=== PATIENT | female | born 1985 | race Caucasian/White ===

== ENCOUNTER 2022-01-17 09:55 | Emergency (ER) | payer SELFPAY ==
[~2022-01-17] VITALS: Ht 170.2 cm; Wt 49.9 kg
--- NOTE | 2022-01-17 10:05 | NUR ---
The patient is , from home, having panic attack, palpitation, been drinking alcohol x 4 days, HR 140. The patient is alert and oriented x3. Denies pain. In room air and denies SOB. Respiration regular and unlabored. Attached to the monitor. Will continue to monitor the patient.
[2022-01-17] MEDS ORDERED: LORAZEPAM INJ 2 MG/ML VIAL ONE (10:16)
[2022-01-17 10:26] LABS: BASOPHILS # (AUTO) 0.1 K/uL (0.0-0.2); BASOPHILS % (AUTO) 0.9 % (0.0-2.0); EOSINOPHILS % (AUTO) 0.6 % (0.0-6.0); HEMATOCRIT 47 % (33-45); HEMOGLOBIN 15.8 g/dL (11.5-14.8); LYMPHOCYTES # (AUTO) 4.2 K/uL (0.8-4.8); LYMPHOCYTES % (AUTO) 55.7 % (20.0-44.0); MEAN CORPUSCULAR HGB CONC 34 g/dl (31.0-36.0); MEAN CORPUSCULAR VOLUME 93 fL (82-100); MONOCYTES # (AUTO) 0.4 K/uL (0.1-1.30); MONOCYTES % (AUTO) 5.1 % (2.0-12.0); NEUTROPHILS # (AUTO) 2.9 K/uL (1.8-8.9); NEUTROPHILS % (AUTO) 37.7 % (43.0-81.0); PLATELET COUNT (AUTO) 269 K/uL (150-450); RED BLOOD CELL COUNT(AUTO) 5.03 MIL/uL (4.0-5.2); WHITE BLOOD COUNT (AUTO) 7.6 K/uL (4.3-11.0)
--- NOTE | 2022-01-17 10:27 | NUR ---
UNABLE TO PROVIDE URINE SAMPLE YET.
[2022-01-17] MEDS ORDERED: LORAZEPAM INJ 2 MG/ML VIAL IV ONE (10:30)
[2022-01-17] MEDS ORDERED: IV NS 0.9% 1,000 ML BAG IV ONE (10:30)
[2022-01-17 10:45] LABS: ALANINE AMINOTRANSFERASE 34 U/L (12-78); ALBUMIN 4.2 g/dL (3.4-5.0); ALKALINE PHOSPHATASE 70 U/L (46-116); ASPARTATE AMINOTRANSFERASE 55 U/L (15-37); BILIRUBIN,DIRECT 0.3 mg/dL (0.0-0.2); BILIRUBIN,TOTAL 0.9 mg/dL (0.2-1.0); CALCIUM, SERUM 9.1 mg/dL (8.5-10.1); CARBON DIOXIDE 20 mmol/L (21-32); CHLORIDE 97 mmol/L (98-107); CREATININE 0.7 mg/dL (0.6-1.3); GLUCOSE 64 mg/dL (74-106); POTASSIUM 3.8 mmol/L (3.5-5.1); SODIUM SERUM 139 mmol/L (136-145); TOTAL PROTEIN, SERUM 8.5 g/dL (6.4-8.2); UREA NITROGEN, BLOOD 7 mg/dL (7-18)
--- NOTE | 2022-01-17 13:00 | NUR ---
THE PATIENT REFUSES TO GIVE URINE SAMPLE DESPITE EXPLAINING RISKS AND BENEFITS. DR DENY CAPPS.
--- NOTE | 2022-01-17 13:02 | NUR ---
"VIVEK Note: Pt. Is a 36-year-old female who demonstrates adequate insight to the reason for hospitalization. Per pt., she presents in the ER for panic attack/drinking for 4 days straight. Pt. was oriented x4, alert, and cooperative. During interview, pt. was capable of following directions and appeared unkempt. Pt.'s speech was at a normal rate and pt.'s mood was elevated. Pt. reported no hx of mental health, denies suicidal ideation, or homicidal ideation. Pt. denies auditory hallucinations, visual hallucinations, paranoia, or delusions. Pt. stated that she has been drinking for 4 days straight [wine and tequila] due to being stressed. Pt. lives alone [[address] [place] [address]], so it gets lonely. Pt. has been to therapy during the pandemic but became inconsistent with it, so it was not helpful. Pt. expressed that she wants counseling outpatient resources to see a therapist, SW provided pt. with resources. Per pt., it will be helpful to do talk therapy. Plan: SANDRA provided available resources and pt. accepted Upon discharge, per pt., she will return home by calling a Lyft once medically cleared. Resources Provided: Year-round shelters: [facility] [address] [place] [address] ; [facility] [address] [place] [address]; [place] [facility] [id number] [facility] [address] Winter Shelters: Sukh Chan Provider: [place] [facility] [place] Address: [address] [facility] [place], [address] # of Beds: 47 Population Served: [facility] 6 | [facility] Kathryn Murillo [place] Provider: [facility] Address: [address], [address] # of Beds: 66 Population Served: [facility] [employer] [place] Provider: [facility] Serve Address: [address] [facility] # of Beds: 56 Population Served: [facility] [place] Provider: /[facility]. [facility] Address: [address] [facility], [address] # of Beds: 49 Population Served: [facility] 8 | [place] Yeny Chan Provider: [facility] Serve Address: [address] [address] # of Beds: 37 Population Served: [facility] Hy[facility]: [facility]: [address] [place] ; [place] [facility] [address] [facility] ; [facility] [address], [place] . Food Resources: [place] [facility] at [facility]- [address] [facility]; Meet Each Need with Dign[facility] ([facility]) [address] [facility]; [facility] [address] [facility]; [facility] [address] [facility]. Mental Health resources provided: [facility] [address] [place], [place] [address] ; [facility] [place] [address] [facility] [address], [place], [place] [id number] ; [facility] [address] [place] [address] ; [facility] [address] [place], [place] [id number] Healthcare Clinics: [facility] [address] [facility], [address] [place]. [place] ; [facility] [address] [facility] [address] [place] [address]; [facility] [address] [facility] [place] [phone] Counseling--Outpatient [facility] [address] [facility], [place] [address] (Specializes in in-depth psychotherapy for emotional distress: anxiety, depression, interpersonal conflicts, life transitions, childhood abuse) [facility] [address] [place] [address] (Assist with solving problem marital difficulties, separation & divorce, aging parents, & grief, chronic & terminal illness) [facility] [address] [place] [address] (Deal with loss & grief, anxiety, marital difficulties) Homebound/Mental Health Services [address] [facility] [address] [place], [place] [id number] (Provide in-home mental services to people who are incapable of leaving their homes) [facility] Elderly Senior Service/Resource [facility] [address] [place] [address] [facility] [address] [place] [address] PSYCHIATRIC OUTPATIENT SERVICES [facility] Partial Hospitalization and Intensive Outpatient Program (Managed Care and [place] Only)[address] [facility] [phone] [facility] Partial Hospitalization and Outpatient Gefpqzd86043 [facility] [address] [place], [place] [phone] [facility] Jwo[address] [facility] [address] [place], [place] [phone] [facility] Partial Hospitalization and Outpatient Awvleoa[address]89 [place], [phone] Substance Abuse resources provided included: [facility] Substance Abuse Self-Helpline (SAS) ; CRI -[facility]LP [address] [facility] [place]. [place] [address] ; [facility] [address] [facility] [address] ; [facility] Rehabilitation Program [address] [facility] [address] ; [facility] [address] [place] [facility] [phone] ; [facility] [address] [facility] [address] ; [facility] [place] [address] [facility] [phone] ; [facility] Substance Abuse Helpline([facility] ; [facility] ; [facility]; [facility] [place]; [facility] [place]; [facility] [place]; [facility] [place]; [place] [place]; [facility] [place]; [facility]'s [place], [facility]. [place]; Alcoholics Anonymous -[facility]; Lw-Ugwg-Jveoszu ; Marijuana Anonymous -[facility]V; Narcotics Anonymous www.na.org;"
[2022-01-17 13:55] LABS: CALCIUM, SERUM 7.8 mg/dL (8.5-10.1); CREATININE 0.6 mg/dL (0.6-1.3); POTASSIUM 4.3 mmol/L (3.5-5.1)
--- NOTE | 2022-01-17 14:30 | NUR ---
The patient is alert and oriented x4. Denies pain. In room air and denies SOB. Respiration regular and unlabored. The patient has stable gait. IV removed. Catheter intact and site benign. Pressure and 4x4 applied to site. No bleeding noted.Patient discharged to home in stable condition. Written and verbal after care instructions given. Patient verbalizes understanding of instruction.
[2022-01-17 14:31] VITALS: BP 121/67
== END 2022-01-17 14:32 | disposition home or self-care (01) ==
LOC: ER 09:59
DX: F41.0 Panic disorder [episodic paroxysmal anxiety] (principal); F10.10 Alcohol abuse, uncomplicated; Y90.9 Presence of alcohol in blood, level not specified
CPT/HCPCS: 36415; 71045; 80048 ×2; 80076; 80320; 84484 ×2; 85025; 93005; 96361; 96374; 99285; J2060; J7030; G0480

== ENCOUNTER 2022-01-18 23:19 | Emergency (ER) | payer SELFPAY ==
[~2022-01-18] VITALS: Ht 170.2 cm; Wt 62.1 kg
--- NOTE | 2022-01-18 23:36 | NUR ---
BIBSISTER C/O CP AND FAST HEART RATE WANTS TO GET CHECK OUT, LAST TOOK ADDERALL 30MG AND WINE SATURDAY NIGHT. PATIENT ALERT AND ORIENTED X3. AMBULATORY WITH NON LABORED BREATHING IN BED 14 ON MONITOR AWAITING MD BARROW.
[2022-01-18] MEDS ORDERED: ASPIRIN 325 MG TABLET ONE (23:50)
--- NOTE | 2022-01-18 23:59 | NUR ---
RAC #18G S/L; PATENT AND INTACT. BLOOD COLLECTED AND SENT TO LAB
[2022-01-19] MEDS ORDERED: IV NS 0.9% 1,000 ML BAG IV ONE
[2022-01-19] MEDS ORDERED: ASPIRIN 325 MG TABLET PO ONE
--- NOTE | 2022-01-19 00:02 | NUR ---
EMT @ BEDSIDE FOR EKG
[2022-01-19 00:12] LABS: BASOPHILS % (AUTO) 0.5 % (0.0-2.0); EOSINOPHILS % (AUTO) 0.4 % (0.0-6.0); HEMATOCRIT 44 % (33-45); LYMPHOCYTES # (AUTO) 1.7 K/uL (0.8-4.8); LYMPHOCYTES % (AUTO) 25.2 % (20.0-44.0); MEAN CORPUSCULAR HGB CONC 34 g/dl (31.0-36.0); MEAN CORPUSCULAR VOLUME 93 fL (82-100); MONOCYTES # (AUTO) 0.6 K/uL (0.1-1.30); MONOCYTES % (AUTO) 8.8 % (2.0-12.0); NEUTROPHILS # (AUTO) 4.4 K/uL (1.8-8.9); NEUTROPHILS % (AUTO) 65.1 % (43.0-81.0); PLATELET COUNT (AUTO) 226 K/uL (150-450); RED BLOOD CELL COUNT(AUTO) 4.78 MIL/uL (4.0-5.2); WHITE BLOOD COUNT (AUTO) 6.7 K/uL (4.3-11.0)
--- NOTE | 2022-01-19 00:14 | NUR ---
URINE COLLECTED AND SENT TO LAB
--- NOTE | 2022-01-19 00:15 | NUR ---
AIRLINE MECHANIC AT PT'S BEDSIDE
[2022-01-19 00:26] LABS: CREATININE 0.7 mg/dL (0.6-1.3)
[2022-01-19 00:28] LABS: D-DIMER 0.27 mg/L(FEU (0.17-0.50)
[2022-01-19 00:42] LABS: ALBUMIN 4.1 g/dL (3.4-5.0); BILIRUBIN,DIRECT 0.3 mg/dL (0.0-0.2); BILIRUBIN,TOTAL 1.1 mg/dL (0.2-1.0); TOTAL PROTEIN, SERUM 8.3 g/dL (6.4-8.2)
[2022-01-19 02:32] VITALS: BP 126/71
--- NOTE | 2022-01-19 02:32 | NUR ---
Patient discharged to home in stable condition. Written and verbal after care instructions given. Patient verbalizes understanding of instruction.
== END 2022-01-19 02:33 | disposition home or self-care (01) ==
LOC: ER 23:30
DX: F41.0 Panic disorder [episodic paroxysmal anxiety] (principal); F10.10 Alcohol abuse, uncomplicated; R07.89 Other chest pain; Z60.2 Problems related to living alone; Y90.0 Blood alcohol level of less than 20 mg/100 ml
CPT/HCPCS: 36415 ×2; 71045; 80048; 80076; 80307; 80320; 83880; 84484 ×2; 84703; 85025; 85378; 85730; 93005; 96360; 99285; J7030; G0480

== ENCOUNTER 2022-01-19 13:08 | Emergency (ER) | payer SELFPAY ==
--- NOTE | 2022-01-19 13:14 | NUR ---
CALLED TO TRIAGE NO ANSWER.
--- NOTE | 2022-01-19 13:20 | NUR ---
CALLED TO TRIAGE NO ANSWER.
--- NOTE | 2022-01-19 13:22 | NUR ---
Patient left without being seen by ER Physician
== END 2022-01-19 13:24 | disposition left against medical advice (07) ==
LOC: ER 13:10
DX: Z53.21 Procedure and treatment not carried out due to patient leaving prior to being seen by health care provider (principal)